=== PATIENT | female | born 1960 | race Caucasian/White ===

== ENCOUNTER 2025-02-24 05:51 | Day surgery (SDC) | payer MEDICARE, BC ==
[2025-02-24] MEDS ORDERED: Propofol 200 MG/20 ML SDV IV ONE (05:52)
[2025-02-24] MEDS ORDERED: Lactated Ringers 1,000 ML IV ONE (05:52)
[2025-02-24] MEDS: Lactated Ringers 1,000 ML IV SCH (06:22)
[2025-02-24] MEDS ORDERED: Propofol 200 MG/20 ML SDV ONE (10:41)
== END 2025-02-24 09:05 | disposition home or self-care (01) ==
LOC: DL.ENDO 05:51
PROVIDERS: ATTEND Internal Medicine Gastroenterology
DX: Z12.11 Encounter for screening for malignant neoplasm of colon (principal); K62.1 Rectal polyp; C34.90 Malignant neoplasm of unspecified part of unspecified bronchus or lung; F17.210 Nicotine dependence, cigarettes, uncomplicated; Z88.8 Allergy status to other drugs, medicaments and biological substances; Z86.16 Personal history of COVID-19
CPT/HCPCS: 00811; 45385; 88305; J2704; J7120; S5010